=== PATIENT | male | born 1965 | race Caucasian/White ===

== ENCOUNTER 2021-07-22 06:30 | Day surgery (SDC) | payer BC ==
[2021-07-22] MEDS ORDERED: Propofol 200 MG/20 ML SDV IV ONE (06:31)
[2021-07-22] MEDS ORDERED: Glycopyrrolate 0.2 MG/ML 5 ML MDV IV ONE (06:31)
[2021-07-22] MEDS ORDERED: Lidocaine 2% 5 ML SDV INJECT ONE (06:31)
[2021-07-22] MEDS ORDERED: Lactated Ringers 1,000 ML IV SCH (06:45)
[2021-07-22] MEDS ORDERED: Sodium Chloride 0.9% 10 ML Syringe FLUSH PRN (06:45)
--- NOTE | 2021-07-22 08:24 | PCM.HP.2 ---
H&P History of Present Illness - General Date of Service: 07/22/21 Admit Problem/Dx: Admission Diagnosis/Problem Admission Diagnosis/Problem Esophagogastroduodenoscopy Source of Information: Patient, Old Records History Limitations: Reports: No Limitations - History of Present Illness Initial Comments - Free Text/Narative: Here for EGD for severe substernal burning last month, despite being on PPI, cardiac workup negative - Related Data Allergies/Adverse Reactions: Allergies Allergy/AdvReac Type Severity Reaction Status Date / Time lisinopril AdvReac Cough Verified 07/22/21 07:09 Home Medications: Home Meds Aspirin 81 mg PO DAILY 07/21/21 [History] Cetirizine [ZyrTEC] 10 mg PO DAILY 07/21/21 [History] Gabapentin [Neurontin] 600 mg PO TID 07/21/21 [History] Losartan [Cozaar] 100 mg PO DAILY 07/21/21 [History] Montelukast [Singulair] 10 mg PO BEDTIME 07/21/21 [History] Omeprazole 20 mg PO DAILY 07/21/21 [History] Sertraline [Zoloft] 50 mg PO DAILY 07/21/21 [History] Simvastatin [Zocor] 20 mg PO BEDTIME 07/21/21 [History] hydroCHLOROthiazide [Hydrochlorothiazide] 12.5 mg PO DAILY 07/21/21 [History] Past Medical History HEENT History: Reports: Glaucoma, Impaired Vision Cardiovascular History: Reports: High Cholesterol, Hypertension Respiratory History: Reports: Sleep Apnea, Other (See Below) Other Respiratory History: COVID 08-20-20. CAIN ON CPAP Gastrointestinal History: Reports: Diverticulosis, GERD Genitourinary History: Reports: None Musculoskeletal History: Reports: Other (See Below) Other Musculoskeletal History: CARPAL TUNNEL SYNDROME Neurological History: Reports: Neuropathy, Peripheral Psychiatric History: Reports: Anxiety Endocrine/Metabolic History: Reports: Obesity/BMI 30+ Hematologic History: Reports: None Immunologic History: Reports: None Oncologic (Cancer) History: Reports: None Dermatologic History: Reports: None - Past Surgical History Head Surgeries/Procedures: Reports: None HEENT Surgical History: Reports: Oral Surgery Cardiovascular Surgical History: Reports: None GI Surgical History: Reports: Colonoscopy, EGD Male Surgical History: Reports: None Endocrine Surgical History: Reports: None Neurological Surgical History: Reports: None Musculoskeletal Surgical History: Reports: None Oncologic Surgical History: Reports: None Dermatological Surgical History: Reports: None Social & Family History - Tobacco Use Tobacco Use Status *Q: Former Tobacco User Tobacco Use Comment: USE CIGAR OCASIONALLY - Caffeine Use Caffeine Use: Reports: Soda - Alcohol Use Days Per Week of Alcohol Use: 3 - Recreational Drug Use Recreational Drug Use: No H&P Review of Systems - Review of Systems: Review Of Systems: Comprehensive ROS is negative, except as noted in HPI. Exam - Exam Exam: See Below - Vital Signs Vital Signs: Last Vital Signs Temp 98.2 F 07/22/21 07:07 Pulse 75 07/22/21 07:07 Resp 18 07/22/21 07:07 BP 138/89 07/22/21 07:07 Pulse Ox 95 07/22/21 07:07 Weight: 128.6 kg - Exam General: Alert, Oriented Lungs: Clear to Auscultation, Normal Respiratory Effort Cardiovascular: Regular Rate, Regular Rhythm Sepsis Event Note - Focused Exam Vital Signs: Vital Signs Temp Pulse Resp BP Pulse Ox 07/22/21 07:07 98.2 F 75 18 138/89 95 Problem List Initiated/Reviewed/Updated: Yes Orders Last 24hrs: Active Orders 24 hr Category Date Time Status Patient Status [ADT] Routine ADT 07/22/21 06:45 Active Patient to Empty Bladder [RC] ASDIRECTED Care 07/22/21 06:45 Active Verify Patient Consent Obtain [RC] ASDIRECTED Care 07/22/21 06:45 Active Nothing Per Oral Diet [DIET] Diet 07/22/21 Breakfast Ordered Lactated Ringers [Ringers, Lactated] 1,000 ml Med 07/22/21 06:45 Active IV ASDIRECTED Sodium Chloride 0.9% [Saline Flush] Med 07/22/21 06:45 Active 10 ml FLUSH ASDIRECTED PRN Peripheral IV Insertion Adult [OM.PC] Routine Oth 07/22/21 06:45 Ordered Resuscitation Status Routine Resus Stat 07/21/21 14:31 Ordered Medication Orders Lactated Ringer's (Ringers, Lactated) 1,000 mls @ 125 mls/hr IV ASDIRECTED LUDIVINA Last Admin: 07/22/21 07:28 Dose: 125 mls/hr Documented by: LANDEN Sodium Chloride (Sodium Chloride 0.9% 10 Ml Syringe) 10 ml FLUSH ASDIRECTED PRN PRN Reason: Keep Vein Open Assessment/Plan Comment:: A) Hx GERD P) EGD
--- NOTE | 2021-07-22 08:26 | PCM.OPNOTE ---
- General Post-Op/Procedure Note Date of Surgery/Procedure: 07/22/21 Operative Procedure(s): EGD with Bx Pre Op Diagnosis: GERD Post-Op Diagnosis: Same Anesthesia Technique: MAC Primary Surgeon: Yimi Dickson Complications: None Condition: Good
--- NOTE | 2021-07-23 07:52 | OR ---
DATE OF OPERATION: 07/22/2021 SURGEON: Yimi Dickson MD PREOPERATIVE DIAGNOSIS: Gastroesophageal reflux disease symptoms despite medical therapy. POSTOPERATIVE DIAGNOSIS: Normal esophagogastroduodenoscopy. PROCEDURE: Esophagogastroduodenoscopy. ANESTHESIA: IV sedation. PROCEDURE IN DETAIL: The patient was brought to the procedure room, where he was placed on his left side and IV sedation administered. Oral bite block was placed and the upper endoscope advanced into the esophagus under direct vision without difficulty. Vocal cords were viewed and were normal. Scope was advanced to the third portion of the duodenum. The duodenum and pylorus were normal. Antrum and body of the stomach were normal. A few hyperplastic polyps are present in the body. Retroflexion reveals a normal appearing fundus. Lower esophageal sphincter is slightly weak and I can see the distal esophagus. Squamocolumnar junction was regular. There was no evidence of esophagitis or erosions, ulcerations, or strictures. No hiatal hernia is present. I did take two biopsies from his distal esophagus because of his symptoms. Air was removed and the scope withdrawn through the remaining esophagus, which all looked normal. The patient tolerated the procedure well and returned to recovery in stable condition. The patient will remain on his current medication. He has not had symptoms for the past 4 weeks since his bad episode. No further workup is necessary at this time. /[id number] [address]EEPTH[address]/[place]
== END 2021-07-22 09:12 | disposition home or self-care (01) ==
LOC: FB.SDS 06:30
PROVIDERS: ATTEND Surgery
DX: K21.00 Gastro-esophageal reflux disease with esophagitis, without bleeding (principal); K22.8 Other specified diseases of esophagus; K31.7 Polyp of stomach and duodenum; G47.33 Obstructive sleep apnea (adult) (pediatric); E78.00 Pure hypercholesterolemia, unspecified; I10 Essential (primary) hypertension; E66.9 Obesity, unspecified; G62.9 Polyneuropathy, unspecified; Z88.8 Allergy status to other drugs, medicaments and biological substances; Z79.82 Long term (current) use of aspirin; Z79.899 Other long term (current) drug therapy; Z98.890 Other specified postprocedural states; Z87.891 Personal history of nicotine dependence
CPT/HCPCS: 00731; 43239; 88305; J2704; J3490; J7120

== ENCOUNTER 2022-03-19 22:45 | Emergency (ER) | payer BC ==
[2022-03-19] MEDS ORDERED: Ondansetron 4 MG/2 ML SDV IVPUSH PRN (23:51)
[2022-03-19] MEDS ORDERED: Morphine 4 MG/ML VIAL IVPUSH ONE (23:52)
[2022-03-20] MEDS ORDERED: Morphine 4 MG/ML VIAL IVPUSH ONE ×2 (00:20→00:54)
[2022-03-20] MEDS ORDERED: Iopamidol 755 MG/ML 150 ML Bottle IV ONE (00:47)
== END 2022-03-20 01:40 ==
LOC: FB.ED 22:45
DX: S42.111A Displaced fracture of body of scapula, right shoulder, initial encounter for closed fracture (principal); S22.41XA Multiple fractures of ribs, right side, initial encounter for closed fracture; Z88.8 Allergy status to other drugs, medicaments and biological substances; W01.0XXA Fall on same level from slipping, tripping and stumbling without subsequent striking against object, initial encounter; Y93.39 Activity, other involving climbing, rappelling and jumping off
CPT/HCPCS: 36415; 70450; 71260; 72125; 73030-RT; 74177; 80053; 85025; 96374; 96375; 96376; 99285-25; J2270; J2405; Q9967